=== PATIENT | male | born 1985 | race Caucasian/White ===

== ENCOUNTER 2020-07-15 20:53 | Emergency (ER) | payer OTHER ==
[~2020-07-15] VITALS: Ht 182.9 cm; Wt 90.7 kg
[2020-07-15 21:48] VITALS: BP 117/74
[2020-07-15] MEDS ORDERED: KETOROLAC TROMETHAMINE INJ 60 MG/2 ML VIAL IM ONE ×2 (22:30→22:33)
[2020-07-15] MEDS ORDERED: CYCLOBENZAPRINE 10 MG TABLET PO ONE (22:30)
[2020-07-15] MEDS ORDERED: CYCLOBENZAPRINE 10 MG TABLET ONE (22:33)
[2020-07-15 22:36] LABS: BILIRUBIN,URINE Negative (NEGATIVE); COLOR,URINE YELLOW (YELLOW); LEUKOCYTE ESTERASE ,URINE Negative (NEGATIVE); NITRITE, URINE Negative (NEGATIVE); PROTEIN,URINE 100 mg/dl (NEGATIVE); UGLUCOSE Negative (NEGATIVE); UROBILINOGEN,URINE 0.2 EU/dL (0.2)
--- NOTE | 2020-07-15 22:40 | NUR ---
COVID [facility] SENT
[2020-07-15 22:44] LABS: BACTERIA,URINE Rare /HPF (None Seen); SQUAMOUS EPITHELIAL CELL,UR Few /HPF (None Seen); WBC,URINE NONE SEEN /HPF (0-3)
[2020-07-15] MEDS ORDERED: TRAMADOL HCL 50 MG TABLET PO ONE (23:00)
[2020-07-15] MEDS ORDERED: IBUP-1955 PO (23:08)
[2020-07-15] MEDS ORDERED: CYCL5TAB PO (23:08)
[2020-07-15] MEDS ORDERED: NALO4SPR NS (23:09)
[2020-07-15] MEDS ORDERED: TRAMADOL HCL 50 MG TABLET ONE (23:12)
== END 2020-07-15 23:15 | disposition home or self-care (01) ==
LOC: ER 20:56
DX: M54.89 Other dorsalgia (principal); R05 Cough; Z20.822 Contact with and (suspected) exposure to COVID-19
CPT/HCPCS: 71045; 81001; 96372; 99284; C9803; J1885; U0003

== ENCOUNTER 2025-02-25 00:23 | Emergency (ER) | payer OTHER ==
[~2025-02-25] VITALS: Ht 182.9 cm; Wt 99.8 kg
[~2025-02-25 00:23] MED LIST: CYCL5TAB PO; IBUP-1955 PO; NALO4SPR NS
[2025-02-25 02:45] LABS: PLATELET COUNT (AUTO) 753 K/uL (150-450); RED BLOOD CELL COUNT(AUTO) 3.25 MIL/uL (4.5-6.0); RED CELL DISTRIBUTION WIDTH 15.3 % (11.5-15.0); WHITE BLOOD COUNT (AUTO) 12.4 K/uL (4.3-11.0)
[2025-02-25 02:55] LABS: CALCIUM, SERUM 8.7 mg/dL (8.5-10.1); CREATININE 1.3 mg/dL (0.6-1.3); SODIUM SERUM 138.0 mmol/L (136-145); UREA NITROGEN, BLOOD 17.0 mg/dL (7-18)
[2025-02-25 03:04] LABS: ASPARTATE AMINOTRANSFERASE 34.0 U/L (15-37); NT-PRO BNP 267.0 pg/mL (0-125); TOTAL PROTEIN, SERUM 9.3 g/dL (6.4-8.2)
[2025-02-25] MEDS ORDERED: POTA10CA43 PO (03:44)
[2025-02-25] MEDS ORDERED: FURO-144 PO (03:44)
[2025-02-25] MEDS ORDERED: POTASSIUM CHLORIDE 20 MEQ TAB.PRT.SR PO ONE (03:59)
[2025-02-25] MEDS: POTASSIUM CHLORIDE 20 MEQ TAB.PRT.SR PO ONE (04:02)
[2025-02-25] MEDS ORDERED: POTASSIUM CL. PREMIX PERIPHER. 50 ML ONE (04:08)
[2025-02-25] MEDS: FUROSEMIDE 40 MG/4 ML VIAL IV ONE (04:20)
[2025-02-25] MEDS ORDERED: FUROSEMIDE 40 MG/4 ML VIAL ONE (04:22)
[2025-02-25] MEDS: POTASSIUM CL. PREMIX PERIPHER. 50 ML IV SCH (04:30)
[2025-02-25 05:13] VITALS: BP 120/80; TEMP 98.3; O2SAT 99
== END 2025-02-25 05:14 | disposition home or self-care (01) ==
LOC: ER 00:28
DX: R60.0 Localized edema (principal); R10.11 Right upper quadrant pain; M79.604 Pain in right leg; M79.605 Pain in left leg; F17.200 Nicotine dependence, unspecified, uncomplicated
CPT/HCPCS: 99285; 96374; 85025; 36415; 80053; 83880; 93971 ×2; J1938; J7040; J3480